=== PATIENT | female | born 1990 | race Caucasian/White ===

== ENCOUNTER 2025-04-07 22:49 | Emergency (ER) | payer MEDICAID, OTHER ==
[~2025-04-07] VITALS: Ht 170.2 cm; Wt 77.3 kg
[~2025-04-07 22:49] MED LIST: ALBU17AE16 IH
[2025-04-07 22:50] VITALS: TEMP 97.3
[2025-04-08 01:00] VITALS: BP 121/49; PULSE 55; RESP 15; O2SAT 99
[2025-04-08 02:42] LABS: PLATELET COUNT (AUTO) 199 K/uL (150-450); RED BLOOD CELL COUNT(AUTO) 4.11 MIL/uL (4.00-5.20); RED CELL DISTRIBUTION WIDTH 13.9 % (11.5-14.5); WHITE BLOOD COUNT (AUTO) 7.6 K/uL (4.5-11.0)
[2025-04-08 02:50] LABS: CALCIUM, TOTAL 8.1 mg/dL (8.8-10.5); CREATININE 0.86 mg/dL (0.60-1.30); GLOMERULAR FILTR. RATE CALC > 60 mL/min (>60); GLUCOSE,RANDOM 90 mg/dL (70-110); SODIUM SERUM 136 mmol/L (136-145); UREA NITROGEN, BLOOD 11 mg/dL (7-18)
[2025-04-08 03:02] LABS: APPEARANCE,URINE CLEAR (CLEAR); GLUCOSE, URINE (UA) NEGATIVE (NEGATIVE); LEUKOCYTE ESTERASE ,URINE NEGATIVE (NEGATIVE); NITRATE,URINE NEGATIVE (NEGATIVE); OCCULT BLOOD,URINE NEGATIVE (NEGATIVE); PH,URINE DRUG SCREEN 6.0 (5.0-8.0); SPECIFIC GRAVITIY, URINE 1.033 (1.003-1.030)
[2025-04-08 03:07] LABS: ALCOHOL, URINE DRUG SCREEN NEGATIVE (NEGATIVE); AMPHET/METH SCREEN,URINE NEGATIVE (NEGATIVE); BARBITURATE SCREEN, URINE NEGATIVE (NEGATIVE); CANNABINOID SCREEN,URINE POSITIVE (NEGATIVE); COCAINE SCREEN,URINE NEGATIVE (NEGATIVE); METHADONE SCREEN, URINE NEGATIVE (NEGATIVE)
== END 2025-04-08 03:35 | disposition home or self-care (01) ==
LOC: EMS 22:49
DX: R42 Dizziness and giddiness (principal); J45.909 Unspecified asthma, uncomplicated; Z79.899 Other long term (current) drug therapy
CPT/HCPCS: 80048; 80307; 81003; 85025; 93005; 99284